=== PATIENT | female | born 1995 | race Caucasian/White ===

== ENCOUNTER 2020-10-16 05:21 | Inpatient (IN) | payer OTHER ==
[2020-10-16 06:46] VITALS: BMI 26.4
[2020-10-16] MEDS ORDERED: BUTORPHANOL TARTRATE 1 MG/ML VIAL IVPB ONE ×2 (07:52→09:10)
[2020-10-16] MEDS ORDERED: PROMETHAZINE HCL 25 MG/1 ML VIAL IM ONE (07:52)
[2020-10-16] MEDS: ELECTROLYTE-148 SOLN 1,000 ML IV SCH (08:00)
[2020-10-16 08:54] LABS: INR 0.85 (0.83-1.09); PROTHROMBIN TIME (PATIENT) 10.3 SEC (9.7-13.0)
[2020-10-16 08:57] LABS: ACTIVATED PTT 27.7 SECONDS (25.2-36.5)
[2020-10-16 08:59] LABS: BASO % 0.3 % (0-2.0); EOS % 0.2 % (0-4.5); HEMATOCRIT 33.9 % (32.4-45.2); HEMOGLOBIN 11.6 GM/dL (10.7-15.3); LYMPH % 12.1 % (8-40); MCH 31.4 pg (25.7-33.7); MCHC 34.1 g/dl (32.0-36.0); MEAN CELL VOLUME 92.3 fl (80-96); MEAN PLT VOLUME 12.5 fl (7.5-11.1); MONO % 6.2 % (3.8-10.2); NEUT % 81.2 % (42.8-82.8); PLATELET COUNT 119 K/MM3 (134-434); RBC 3.67 M/mm3 (3.60-5.2); RDW 13.6 % (11.6-15.6); WHITE BLOOD COUNT 11.9 K/mm3 (4.0-10.0)
[2020-10-16] MEDS ORDERED: OXYTOCIN 30 UNITS in 0.9% NS 30 UNIT/500 ML INFUS.BAG IVPB ONE (08:59)
[2020-10-16 09:05] LABS: CALCIUM 8.2 mg/dL (8.5-10.1)
[2020-10-16 09:06] LABS: BLOOD UREA NITROGEN 6.9 mg/dL (7-18)
[2020-10-16 09:09] LABS: CREATININE 0.5 mg/dL (0.55-1.3)
[2020-10-16] MEDS ORDERED: PROMETHAZINE HCL 25 MG/1 ML VIAL IVPB ONE (09:10)
[2020-10-16] MEDS ORDERED: OXYTOCIN 30 UNITS in 0.9% NS 30 UNIT/500 ML INFUS.BAG IVPB SCH (09:15)
[2020-10-16] MEDS ORDERED: PROMETHAZINE HCL 25 MG/1 ML VIAL ONE (11:43)
[2020-10-16] MEDS ORDERED: BUTORPHANOL TARTRATE 1 MG/ML VIAL ONE (11:43)
[2020-10-16] MEDS ORDERED: OXYTOCIN 20 UNITS in 0.9% NS 20 UNIT/1,000 ML INFUS.BAG IV ONE (12:10)
[2020-10-16] MEDS ORDERED: BENZOCAINE 28 GM HEMORRHOIDAL OINTMENT TP PRN (12:55)
[2020-10-16] MEDS ORDERED: METHYLERGONOVINE MALEATE 0.2 MG/1 ML AMP IM PRN (12:55)
[2020-10-16] MEDS ORDERED: BENZOCAINE 20% 57 GM BOTTLE TP PRN (12:55)
[2020-10-16] MEDS ORDERED: BISACODYL 10 MG SUPP.RECT RC PRN (12:55)
[2020-10-16] MEDS ORDERED: WITCH HAZEL 50% (TUCKS) 40 PAD/JAR PAD TP PRN (12:55)
[2020-10-16] MEDS ORDERED: OXYTOCIN 20 UNITS in 0.9% NS 20 UNIT/1,000 ML INFUS.BAG IV SCH (13:00)
[2020-10-16] MEDS ORDERED: D5W-LR W/ 20 UNITS OXYTOCIN 1,000 ML IV SCH (13:00)
[2020-10-16 13:55] LABS: CORD BASE EXCESS -8.5 mmol/L (0-2); CORD HCO3 23.1 mmHg (20-29); CORD PCO2 74.4 mmHg (30-78); CORD pH 7.11 (7.14-7.44)
[2020-10-16 13:57] LABS: CORD BASE EXCESS -6.1 mmol/L (0-2); CORD HCO3 20.1 mmHg (20-29); CORD pH 7.297 (7.14-7.44)
[2020-10-16] MEDS: IBUPROFEN 600 MG TABLET (FP) PO PRN ×2 (15:27→22:28)
[2020-10-16] MEDS: ACETAMINOPHEN 325 MG TABLET (FP) PO PRN ×2 (15:27→22:29)
[2020-10-16] MEDS: FERROUS SO4 325 MG TABLET (FP) PO SCH (18:05)
[2020-10-17] MEDS: ACETAMINOPHEN 325 MG TABLET (FP) PO PRN ×2 (05:39→21:35)
[2020-10-17] MEDS: IBUPROFEN 600 MG TABLET (FP) PO PRN ×3 (05:39→21:34)
[2020-10-17] MEDS: ELECTROLYTE-148 SOLN 1,000 ML IV SCH (07:11)
[2020-10-17 08:25] LABS: BASO % 0.3 % (0-2.0); HEMATOCRIT 27.6 % (32.4-45.2); HEMOGLOBIN 9.3 GM/dL (10.7-15.3); LYMPH % 8.9 % (8-40); MCH 31.4 pg (25.7-33.7); MCHC 33.7 g/dl (32.0-36.0); MEAN CELL VOLUME 93.3 fl (80-96); MEAN PLT VOLUME 12.1 fl (7.5-11.1); NEUT % 86.8 % (42.8-82.8); PLATELET COUNT 104 K/MM3 (134-434); RBC 2.96 M/mm3 (3.60-5.2); RDW 13.7 % (11.6-15.6); WHITE BLOOD COUNT 13.7 K/mm3 (4.0-10.0)
[2020-10-17] MEDS: FERROUS SO4 325 MG TABLET (FP) PO SCH ×2 (08:44→17:21)
[2020-10-17] MEDS: PRENATAL VITAMINS W/ FOLIC ACID TABLET (FP) PO SCH (09:25)
[2020-10-17] MEDS ORDERED: SENNOSIDES/DOCUSATE COMBO (SENNA PLUS) TABLET (UD) PO PRN (22:00)
[2020-10-18] MEDS: FERROUS SO4 325 MG TABLET (FP) PO SCH (08:54)
[2020-10-18] MEDS: ACETAMINOPHEN 325 MG TABLET (FP) PO PRN (08:54)
[2020-10-18] MEDS: IBUPROFEN 600 MG TABLET (FP) PO PRN (08:55)
[2020-10-18] MEDS ORDERED: DIPHTH,PERTUSS(ACELL),TET 0.5 ML DISP.SYRIN IM ONE (10:00)
[2020-10-18] MEDS: PRENATAL VITAMINS W/ FOLIC ACID TABLET (FP) PO SCH (11:49)
[2020-10-18 13:29] VITALS: BP 116/72; PULSE 97; TEMP 98.6
== END 2020-10-18 14:05 | disposition home or self-care (01) | DRG 560 ==
LOC: JDEL 05:21 → JLDR 06:05 → J3W 13:56
PROVIDERS: ADMIT Obstetrics & Gynecology; ATTEND Obstetrics & Gynecology
PROC: 10907ZC Drainage of Amniotic Fluid, Therapeutic from Products of Conception, Via Natural or Artificial Opening (ICD-10-PCS; principal; 2020-10-16)
PROC: 10E0XZZ Delivery of Products of Conception, External Approach (ICD-10-PCS; 2020-10-16)
PROC: 0KQM0ZZ Repair Perineum Muscle, Open Approach (ICD-10-PCS; 2020-10-16)
DX: O70.1 Second degree perineal laceration during delivery (principal); Z3A.39 39 weeks gestation of pregnancy; Z37.0 Single live birth
CPT/HCPCS: 36415; 36600; 59409; 80048; 82803; 85025; 85610; 85730; 86780; 86850; 86900; 86901; 90715; C9803; U0003; U0005